=== PATIENT | male | born 1965 | race Native Hawaiian/Other Pacific Islander ===

== ENCOUNTER → 2023-09-04 | Outpatient (CLI) | payer OTHER ==
--- NOTE | 2023-09-09 06:12 | MR ---
EXAMINATION TYPE: MR knee RT wo con DATE OF EXAM: 09/04/2023 COMPARISON: Outside right knee x-ray August 19, 2023 HISTORY: Right knee pain and swelling x6 years TECHNIQUE: Multiplanar, multisequence images of the knee is performed without IV contrast. FINDINGS: MEDIAL MENISCUS: Medial bulging medial meniscus. Truncated appearance to the medial meniscus with abn ormal signal particularly posterior horn extending to articular surface. LATERAL MENISCUS: Subtle horizontal increased signal does not extend to articular surface. CRUCIATE LIGAMENTS: The anterior and posterior cruciate ligaments are intact. Increased signal throug hout the anterior cruciate ligament is noted. COLLATERAL LIGAMENTS: The medial collateral ligament and lateral collateral ligament complex are inta ct and unremarkable. EXTENSOR MECHANISM: Visualized quadriceps and patellar tendons are intact. EFFUSION: Small size suprapatellar joint effusion. POPLITEAL CYST: Small to moderate-sized popliteal/hughes cyst. TRICOMPARTMENT SPACES: Moderate tricompartment joint space loss and spurring. CARTILAGE: Cartilaginous loss medial tibial femoral compartment. BONE MARROW SIGNAL: There are areas of diminished T1 and increased T2 signal medial tibial femoral co mpartment. OTHER: No additional significant abnormality is appreciated. IMPRESSION: 1. Complex full thickness tear posterior horn medial meniscus. 2. Tricompartment degenerative changes that are most prominent and moderate to advanced medial tibiof emoral compartment as detailed above. 3. 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 4. Small-sized suprapatellar joint effusion. 5. Possible intrasubstance tear of lateral meniscus. No full thickness tear seen. 6. Small to moderate size popliteal cyst.
== END | disposition home or self-care (01) ==
LOC: RADMRIMAIN 16:54
PROVIDERS: ATTEND Orthopaedic Surgery
DX: M17.11 Unilateral primary osteoarthritis, right knee (principal); M23.321 Other meniscus derangements, posterior horn of medial meniscus, right knee; M23.611 Other spontaneous disruption of anterior cruciate ligament of right knee; M71.21 Synovial cyst of popliteal space [Baker], right knee; M25.461 Effusion, right knee

== ENCOUNTER → 2024-05-04 | Outpatient (CLI) | payer OTHER ==
[2024-05-04 18:13] LABS: HCT 47.8 % (39.6-50.0); HGB 15.6 g/dL (13.0-17.0); MCH 29.2 pg (27.0-32.0); MCHC 32.6 g/dL (32.0-37.0); MCV 89.5 FL (80.0-97.0); Mean Platelet Volume 8.7 FL (9.5-12.2); NRBC Per 100 WBC 0 X 10*3/uL (0.00-0.01); Platelet Count 247 X 10*3/uL (140-440); RBC 5.34 X 10*6/uL (4.40-5.60); RDW 13.4 % (11.5-14.5); WBC 9.56 X 10*3/uL (4.50-10.00)
[2024-05-04 18:14] LABS: Basophils # (A) 0.02 X 10*3/uL (0.00-0.10); Basophils % (A) 0.2 %; Eosinophils # (A) 0.11 X 10*3/uL (0.04-0.35); Eosinophils % (A) 1.2 %; Lymphocytes # (A) 2.38 X 10*3/uL (0.90-5.00); Lymphocytes % (A) 24.9 %; Monocytes # (A) 0.41 X 10*3/uL (0.20-1.00); Monocytes % (A) 4.3 %; Neutrophils # (A) 6.61 X 10*3/uL (1.80-7.70); Neutrophils % (A) 69.1 %
[2024-05-04 18:25] LABS: Anion Gap 10.8 mmol/L (4.00-12.00); Carbon Dioxide 22.2 mmol/L (21.6-31.8); Potassium 4.1 mmol/L (3.5-5.5)
== END | disposition home or self-care (01) ==
LOC: LABPAT 12:15
PROVIDERS: ATTEND Orthopaedic Surgery
DX: Z01.812 Encounter for preprocedural laboratory examination (principal); M23.92 Unspecified internal derangement of left knee
CPT/HCPCS: 80051; 85025; 93005

== ENCOUNTER 2024-05-12 11:51 | Day surgery (SDC) | payer OTHER ==
[2024-05-11 08:52] VITALS: BMI 38.7
--- NOTE | 2024-05-12 08:40 | HP ---
HISTORY AND PHYSICAL DATE OF SURGERY: 05/12/2024. HISTORY OF PRESENT ILLNESS: Brando Fuentes is a 58-year-old gentleman, seen with progressive right knee pain. After treatment options were discussed with him, he elected to proceed with right knee arthroscopy. Consents obtained. PAST MEDICAL HISTORY: Noncontributory. SURGICAL HISTORY: Cholecystectomy. DAILY MEDICATIONS: Aleve. ALLERGIES: None. SOCIAL HISTORY: Denies tobacco use. PHYSICAL EVALUATION OF THE RIGHT KNEE: Range of motion 0 to 130 degrees. Tenderness, medial joint line. Positive medial Kaya's. Ligaments stable. Hip rotation without pain. Distal neurovascular exam intact. IMAGING DATA: Right knee radiographs revealed moderate medial compartment osteoarthritis. MRI right knee revealed complex medial meniscal tear. Intrasubstance lateral meniscal tear, effusion, osteoarthritic changes. IMPRESSION: Internal derangement of right knee with medial meniscal tear. PLAN: Right knee arthroscopy with partial medial meniscectomy and debridement. MMODL / IJN: [id number] /
[~2024-05-12 11:51] MED LIST: HYDROmorphone 0.5 MG/0.5 ML SYRINGE IVP PRN; LIDOCAINE 1% (10MG/ML) FOR IV START INTRADERMA PRN; MIDAZOLAM 2 MG/2 ML VIAL IV PRN; fentaNYL (PF) 50 MCG/ML 2 ML AMP IVP PRN
[2024-05-12] MEDS: IV FLUID CONTINUATION 1,000 ML IV ONE (12:46)
[2024-05-12] MEDS: LACTATED RINGERS 1,000 ML IV SCH (12:47)
[2024-05-12] MEDS: ONDANSETRON 4 MG/2 ML VIAL IVP ONE (12:55)
[2024-05-12] MEDS: DEXAMETHASONE SOD PHOSPHATE 4 MG/ML 1 ML VIAL IV ONE (12:55)
[2024-05-12] MEDS: SCOPOLAMINE 1 MG/72 HR PATCH TRANSDERM STA (13:01)
[2024-05-12] MEDS: BUPIVACAINE (PF) 0.25% 30 ML VIAL SQ ONE ×2 (13:44→14:29)
[2024-05-12] MEDS ORDERED: SUCCINYLCHOLINE CHLORIDE 200 MG/10 ML VIAL IV ONE (13:52)
[2024-05-12] MEDS ORDERED: MIDAZOLAM 2 MG/2 ML VIAL ONE (13:52)
[2024-05-12] MEDS ORDERED: fentaNYL (PF) 50 MCG/ML 2 ML AMP ONE (13:52)
[2024-05-12] MEDS ORDERED: PROPOFOL 10 MG/ML 20 ML VIAL IV ONE (13:52)
[2024-05-12] MEDS ORDERED: KETOROLAC 15 MG/ML 1 ML VIAL ONE (13:52)
[2024-05-12] MEDS ORDERED: LIDOCAINE 1% INJ 10MG/ML (20 ML MDV) ONE (13:52)
[2024-05-12] MEDS: ceFAZolin 3 GM in SODIUM CHLORIDE 0.9% 100 ML IVPB PRN (13:54)
--- NOTE | 2024-05-12 14:50 | P.OP ---
Date of Procedure: 05/12/24 Preoperative Diagnosis: Internal derangement right knee Postoperative Diagnosis: 1. Tear medial and lateral meniscus right knee 2. Grade IV chondromalacia medial femoral condyle right knee 3. Reactive synovitis medial, lateral and suprapatellar compartments right knee Procedure(s) Performed: 1. Arthroscopic partial medial and lateral meniscectomy right knee 2. Arthroscopic microfracture medial femoral condyle right knee 3. Arthroscopic partial synovectomy medial, lateral and suprapatellar compartments right knee Anesthesia: ELIESERA, local Surgeon: Cheo Zambrano Estimated Blood Loss (ml): 7 Pathology: none sent Condition: stable Disposition: PACU Indications for Procedure: 58-year-old patient seen with progressive right knee pain. After having treatment options discussed, he elected to proceed with arthroscopy. Operative Findings: See description of procedure Description of Procedure: Patient was taken to the operative suite. Patient underwent a general anesthetic by the department of anesthesia. Patient was given preoperative antibiotics. The right lower extremity was placed in a well-padded arthroscopic leg johnson. The right leg was prepped and draped in the normal sterile orthopedic fashion. A lateral parapatellar and suprapatellar incision was made. Trochars were inserted. Arthroscopy was initiated. Suprapatellar pouch revealed diffuse thick reactive synovitis. The patellofemoral joint appeared to articulate congruently. There was grade I/II chondromalacia patella without tears. The scope was guided into the medial gutter. No loose bodies or plica were identified. The scope was then guided into the medial compartment. A medial parapatellar incision was made. Trocar inserted followed by probe. There was a complex tear involving the posterior medial meniscus. There was an area of grade IV chondromalacia medial tibial plateau with exposed bone measuring about 1.5 cm. There was an area of grade IV chondromalacia medial femoral condyle/exposed bone measuring about 1 cm. There was thick reactive synovitis anteriorly. I performed a partial medial meniscectomy getting down to stable meniscal tissue. I performed a partial synovectomy decompressing the thick reactive synovitis anteriorly. I introduced a microfracture awl and I performed a microfracture to the area of exposed bone medial femoral condyle penetrating the bone with resultant bleeding at the microfracture site. The residual meniscus was stable. The residual osteochondral surface was stable. There was good decompression of the synovitis. Scope and probe were then guided into the intercondylar notch. Cruciates were identified, probed and found to be stable. The scope and probe were then guided into lateral compartment. There was a radial tear along the mid body lateral meniscus. There was no significant chondromalacia involving lateral compartment. There was thick reactive synovitis anteriorly. I performed a partial lateral meniscectomy getting down to stable meniscal tissue. I performed a partial synovectomy decompressing the reactive synovitis. The residual meniscus was stable. There was good decompression of the synovitis. The scope was in guided back into the suprapatellar compartment. I had used a motorized shaver into the suprapatellar compartment. I debrided some piecemeal fragments of meniscus I encountered. I performed a partial synovectomy. The shaver was now removed. There was good decompression of the synovitis. I took 1 more look around the entire knee, no residual debris. Instruments were now removed from the joint. The joint was infiltrated with .25% Marcaine. Steri-Strips were applied to the portal sites. Sterile dressings were applied. The patient was placed into a ABRAN hose. No tourniquet was utilized. The patient was awakened, transferred to a bed and taken to recovery stable satisfactory condition.
[2024-05-12 14:59] VITALS: TEMP 97
[2024-05-12 15:04] VITALS: RESP 16
[2024-05-12] MEDS: HYDROcodone/APAP 5-325MG 1 EACH TAB PO STA (16:02)
[2024-05-12 16:30] VITALS: BP 144/77; PULSE 75
== END 2024-05-12 16:54 | disposition home or self-care (01) ==
LOC: OR 11:51
PROVIDERS: ATTEND Orthopaedic Surgery
DX: S83.281A Other tear of lateral meniscus, current injury, right knee, initial encounter (principal); S83.241A Other tear of medial meniscus, current injury, right knee, initial encounter; M65.961 Unspecified synovitis and tenosynovitis, right lower leg; M17.11 Unilateral primary osteoarthritis, right knee; M22.42 Chondromalacia patellae, left knee; K21.9 Gastro-esophageal reflux disease without esophagitis; E66.01 Morbid (severe) obesity due to excess calories; Z90.49 Acquired absence of other specified parts of digestive tract; Z79.899 Other long term (current) drug therapy; X58.XXXA Exposure to other specified factors, initial encounter
CPT/HCPCS: 29879; 29880; J2250; J0330; J1100; J0690; J2405; J2003; J3010; J1885; J2704; J0665